=== PATIENT | female | born 1965 | race Caucasian/White ===

== ENCOUNTER 2016-07-01 11:30 | Emergency (ER) | payer OTHER ==
[2016-07-01 11:55] VITALS: BP 157/93; PULSE 83; RESP 20; TEMP 98.2; O2SAT 97
--- NOTE | 2016-07-01 12:59 | UCPHY ---
H & P Time Seen by Provider: 07/01/16 12:46 Patient Type: New HPI/ROS: CHIEF COMPLAINT: Prescription refill HISTORY OF PRESENT ILLNESS: 51-year-old female with bipolar disorder presents requesting a refill of Latuda. She has been on Latuda 20 mg daily for a few months, but is unable to pay for the medication because it costs 450 dollars every month. She is requesting that we fill the medication for her. She states that she has been to prior emergency departments and has received the medication. She has no other concerns and has not recently been ill. Past Medical/Surgical History: Bipolar disorder Social History: [place]iting from [place] of [place] until August 06 Smoking Status: Current every day smoker Physical Exam: General Appearance: Alert, no distress Eyes: Pupils equal and round ENT, Mouth: Mucous membranes moist Neck: Normal inspection Respiratory: normal respiratory rate Neurological: A&O, nonfocal, normal gait Skin: Warm and dry Extremities: normal inspection Psychiatric: flat affect Constitutional: Initial Vital Signs Temperature (C) 36.8 C 07/01/16 11:49 Heart Rate 83 07/01/16 11:49 Respiratory Rate 20 07/01/16 11:49 Blood Pressure 157/93 H 07/01/16 11:49 O2 Sat (%) 97 07/01/16 11:49 Allergies/Adverse Reactions: lamotrigine [From Lamictal] Allergy (Verified 07/01/16 11:54) Home Medications: Medication Instructions Recorded Latuda 07/01/16 Lurasidone HCl [Latuda] 20 mg PO DAILY #30 tablet 07/01/16 MDM/Departure - [facility] ED Course/Re-evaluation: Case management was consulted for this patient for assistance with medication costs. - Depart Disposition: Home, Routine, Self-Care Clinical Impression: Medication requested Condition: Good Instructions: Additional Information Prescriptions: Lurasidone HCl [Latuda] 20 mg PO DAILY #30 tablet Referrals: JAMES GOODRICH [Other] - As per Instructions Sesar Mcgarry MD [Medical Doctor] - As per Instructions - PQRS PQRS Measurement: NA
== END 2016-07-01 14:15 | disposition home or self-care (01) ==
LOC: CED 11:30
DX: F31.9 Bipolar disorder, unspecified (principal); F17.210 Nicotine dependence, cigarettes, uncomplicated; Z91.120 Patient's intentional underdosing of medication regimen due to financial hardship
CPT/HCPCS: G0463-PO